=== PATIENT | female | born 1970 | race African-American/Black ===

== ENCOUNTER 2017-01-06 17:23 | Emergency (ER) | payer OTHER ==
[~2017-01-06] VITALS: Ht 175.3 cm; Wt 135.2 kg
--- NOTE | 2017-01-06 17:45 | NUR ---
PT BIB SELF C/O CUEVA, DIZZINESS, NOSE PAIN, AND LIP SWELLING S/P SYNCOPE X2 TODAY AT 0730 AND 1030. NO BLURRED OR DOUBLE VISION BUT REPORTS DIZZINESS AND CUEVA. NO NUERO DEFICITS. RESP EVEN UNLABORED. SKIN WARM NONDIAPHORETIC. AMBULATORY WITH STEADY GAIT. NAD NOTED. IN ER BED 11 ON MONITOR.
--- NOTE | 2017-01-06 18:20 | NUR ---
REPORT GIVEN TO JOHN LONG FOR [facility]
[2017-01-06 18:30] LABS: BASOPHILS # (AUTO) 0.6 /CMM (0.0-0.2); EOSINOPHILS % (AUTO) 0.4 % (0.0-6.0); HEMATOCRIT 32 % (33-45); HEMOGLOBIN 9.5 g/dL (11.5-14.8); LYMPHOCYTES # (AUTO) 1.8 /CMM (0.8-4.8); MEAN CORPUSCULAR HEMOGLOBIN 21 PG (26.0-33.0); MEAN CORPUSCULAR HGB CONC 30 g/dl (31.0-36.0); MEAN CORPUSCULAR VOLUME 68 fL (82-100); MONOCYTES % (AUTO) 9.2 % (2.0-12.0); NEUTROPHILS % (AUTO) 67.7 % (43.0-81.0); PLATELET COUNT (AUTO) 361 /CMM (150-450); RDW COEFFICIENT OF VARIATION 20.5 (11.5-15.0); RED BLOOD CELL COUNT(AUTO) 4.59 MIL/uL (4.0-5.2); WHITE BLOOD COUNT (AUTO) 10.4 K/uL (4.3-11.0)
[2017-01-06] MEDS ORDERED: IV NS 0.9% 1,000 ML BAG IV ONE (18:30)
[2017-01-06 18:33] LABS: BASOPHILS % (AUTO) 5.7 % (0.0-2.0)
[2017-01-06] MEDS ORDERED: ONDANSETRON 4 MG TAB.RAPDIS ONE (18:37)
[2017-01-06 18:41] LABS: CALCIUM, SERUM 9.3 mg/dL (8.5-10.1); CARBON DIOXIDE 21 mmol/L (21-32); CHLORIDE 104 mmol/L (98-107); CREATININE 0.7 mg/dL (0.6-1.3); GLUCOSE 84 mg/dL (74-106); POTASSIUM 3.8 mmol/L (3.5-5.1); SODIUM SERUM 139 mmol/L (136-145); UREA NITROGEN, BLOOD 6 mg/dL (7-18)
[2017-01-06 18:47] LABS: ALANINE AMINOTRANSFERASE 8 U/L (12-78); ALBUMIN 3.9 g/dL (3.4-5.0); ALKALINE PHOSPHATASE 64 U/L (46-116); ASPARTATE AMINOTRANSFERASE 12 U/L (15-37); BILIRUBIN,DIRECT 0.1 mg/dL (0.0-0.2); BILIRUBIN,TOTAL 0.4 mg/dL (0.2-1.0); TOTAL PROTEIN, SERUM 8.3 g/dL (6.4-8.2)
[2017-01-06 18:49] LABS: TROPONIN I < 0.017 ng/mL (0.00-0.056)
[2017-01-06] MEDS ORDERED: ONDANSETRON 4 MG TAB.RAPDIS SL ONE (19:00)
[2017-01-06] MEDS ORDERED: IV NS 0.9% 1,000 ML ONE (19:04)
[2017-01-06] MEDS ORDERED: IV SET PRIMARY 1 EA INFUS.SET MC ONE (19:04)
[2017-01-06 19:40] LABS: BAND % (MANUAL) 2 % (0.0-5.0); LYMPHOCYTES % (MANUAL) 20 % (16-48); MONOCYTES % (MANUAL) 8 % (0-11.0); NEUTROPHILS % (MANUAL) 70 (42-76)
--- NOTE | 2017-01-06 20:40 | NUR ---
Patient discharged to home in stable condition. Written and verbal after care instructions given. Patient verbalizes understanding of instruction. IV removed. Catheter intact and site benign. Pressure and 4x4 applied to site. No bleeding noted. NAD NOTED UPON DISCHARGE, ABLE TO AMBULATE WITHOUT PROBLEMS
[2017-01-06 20:41] VITALS: BP 120/75
== END 2017-01-06 20:49 | disposition home or self-care (01) ==
LOC: ER 17:24
DX: S00.83XA Contusion of other part of head, initial encounter (principal); R55 Syncope and collapse; D64.9 Anemia, unspecified; Z98.890 Other specified postprocedural states; W19.XXXA Unspecified fall, initial encounter; Y93.89 Activity, other specified; Y92.89 Other specified places as the place of occurrence of the external cause; Y99.8 Other external cause status
CPT/HCPCS: 36415; 70450; 70486; 72125; 80048; 80076; 84484; 85025; 93005; 96360; 99285; A4606; J7030; Q0162; Z7610